=== PATIENT | female | born 1950 | race Caucasian/White ===

== ENCOUNTER 2025-04-02 21:21 | Inpatient (IN) | payer MEDICARE, SELFPAY ==
[2025-04-02 20:19] VITALS: BP 128/69; PULSE 91; RESP 16; O2SAT 92; BMI 28.3
[2025-04-02 21:21] VITALS: BMI 28.5
--- NOTE | 2025-04-02 22:06 | HP.PCM_ITS ---
HPI - General General Date of Admission: 04/02/25 Date of Service: 04/05/25 Chief Complaint: Here for rehabilitation. HPI Narrative SILVESTRE GARCIA, is a 74 Female who presents with followin03/30/2025 [facility]mit [facility]. 03/30/2025 Dr. Carl Hood performed right total knee arthroplasty. 03/30/2025 PT/OT SNF. 03/31/2025 WBAT, Geriatric consult, history of postoperative delirium, avoid Benadryl. IV antibiotics, then Duricef on discharge. PT/OT SNF. 04/01/2025 No acute events overnight, confused, history of postoperative delirium. Plan discharge to SNF. WBAT PT/OT. 04/02/2025 Eliquis/SCD for DVT prophylaxis. Doing well, pain well controlled. Delirium still. 04/02/2025 Admit to TCU with debility, here for rehabilitation, strengthening, prior to discharge home with . [facility] Medical History (Updated 04/02/25 @ 22:[address] Stef Bean MD) Irritable bowel syndrome Osteoporosis GERD (gastroesophageal reflux disease) Chronic back pain Anxiety Depression Polycythemia vera Hyperlipidemia, unspecified Essential (primary) hypertension Postoperative delirium Osteoarthritis of right knee Debility Home Medications ?Medication ?Instructions ?Recorded ?Last Taken ?Type acetaminophen 300 mg-codeine 30 mg 1 tab PO Q6H PRN se aga pain 04/02/25 Unknown History tablet (scale score 7-10) apixaban 2.5 mg tablet (Eliquis) 2.5 mg PO BID Prophal actic 04/02/25 Unknown History bupropion HCl 150 mg 24 hr tablet, 150 mg PO DAILY moo d 04/02/25 04/02/25 09:10 History extended release 150 mg carvedilol 12.5 mg tablet 12.5 mg PO BIDCM HBP 04/02/ 5 04/02/25 17:20 History 12.5 mg cefadroxil 500 mg capsule 500 mg PO BID prophylaxis Unknown History cholecalciferol (vitamin D3) 25 25 mcg PO BID health m aint 04/02/25 Unknown History mcg (1,000 unit) capsule diphenhydramine HCl 50 mg tablet 50 mg PO Q24H PRN itc davon 04/02/25 Unknown History (Benadryl Allergy) docusate sodium 100 mg capsule 100 mg PO BID constipat ion 04/02/25 Unknown History (Colace) duloxetine 60 mg capsule,delayed 60 mg PO DAILY mood 0 04/02/25 04/02/25 09:10 History release 60 mg ezetimibe 10 mg tablet 10 mg PO DAILY HDL 04/02/25 04/02/25 09:10 History 10 mg hydroxyurea 500 mg capsule 500 mg PO DAILY other 04/0204/02/25 09:10 History 500 mg lactase 3,000 unit tablet (Lactaid) 3,000 unit PO SORAYA Y dairy 04/02/25 Unknown History intolerance lansoprazole 30 mg capsule,delayed 30 mg PO DAILY GERD 04/02/25 Unknown History release lisinopril 20 mg tablet 20 mg PO DAILY HBP 04/02/25 04/02/25 09:10 History 20 mg loratadine 10 mg tablet 10 mg PO DAILY allergies Unknown History (Allerclear) methylcellulose (laxative) 500 mg 1,000 mg PO BID fibe r 04/02/25 Unknown History tablet (Citrucel) methylprednisolone 4 mg tablets in See Rx Instructions PO .COMPLEX 04/02/25 Unknown History a dose pack (Medrol (Valentino)) postop multivitamin (Daily Multi-Vitamin 1 tab PO DAILY healt h maint 04/02/25 Unknown History tablet) ondansetron 4 mg disintegrating 4 mg PO Q8H PRN nausea 04/02/25 Unknown History tablet pantoprazole 20 mg tablet,delayed 20 mg PO DAILY GERD 04/02/25 Unknown History release polyethylene glycol 3350 17 g .Route DAILY constipati on 04/02/25 Unknown History sennosides 8.6 mg tablet (senna) 17.2 mg PO BID consti pation 04/02/25 04/01/25 21:35 History 8.6 mg teriparatide 20 mcg/dose (560 20 mcg subcut DAILY oste o 04/02/25 Unknown History mcg/2.24 mL) subcutaneous pen injector trospium 20 mg tablet 20 mg PO BIDCM overactive bl adder 04/02/25 Unknown History Allergy/AdvReac Type Severity Reaction Status Date / Time acetaminophen (From Panlor Allergy Other Verified 04/02/25 19:59 (hydrocodone-acetamin)) hydrocodone (From Panlor Allergy Other Verified 04/02/25 19:59 (hydrocodone-acetamin)) lactose Allergy Diarrhea Verified 04/02/25 19:59 meperidine Allergy Rash Verified 04/02/25 19:59 Milk Containing Products Allergy Nausea/Vom/ Verified 04/02/25 19:59 (Dairy) Diarrhea propoxyphene Allergy Diarrhea Verified 04/02/25 19:59 Sulfa (Sulfonamide Allergy Rash Verified 04/02/25 19:59 Antibiotics) sulfacetamide Allergy Rash Verified 04/02/25 19:59 atorvastatin AdvReac Other Verified 04/02/25 19:59 lorazepam AdvReac Other Verified 04/02/25 19:59 Family History (Updated 04/02/25 @ 22:[address] Stef Bean MD) Mother Hypertension Anemia Alzheimer disease Father CVA (cerebral vascular accident) Myocardial infarction Sister Alzheimer disease Sister Breast cancer Daughter Leukemia Surgical History (Updated 04/02/25 @ 22:[address] Stef Bean MD) History of esophagogastroduodenoscopy (EGD) History of hysterectomy History of squamous cell carcinoma excision History of colonoscopy History of lumbar fusion Status post total right knee replacement Social History (Updated 04/02/25 @ 22:[address] Stef Bean MD) household members: spouse Smoking Status: Never smoker alcohol intake: current substance use type: does not use ROS Constitutional Constitutional: Reports weakness; Denies chills, fever(s) or weight gain ENT HEENT: Denies headache(s), nasal congestion or nasal discharge Cardiovascular Cardiovascular: Denies chest pain or palpitations Respiratory/Chest Respiratory/Chest: Denies cough, excessive phlegm production or shortness of breath with exertion Gastrointestinal Gastrointestinal: Denies abdominal pain, nausea or vomiting Genitourinary Genitourinary: Denies dysuria Musculoskeletal Musculoskeletal: Denies joint pain or joint swelling Integumentary Integumentary: Denies rash or wounds Neurologic Neurologic: Denies focal weakness, numbness or tingling Psychiatric Psychiatric: Denies anxiety, auditory hallucinations, depression, homicidal ideation or suicidal ideation Vital Signs Vital Signs Vital Signs: Weight Weight: 65.862 kg Body Mass Index (BMI) 28.5 Physical Exam Const alert General Appearance: cooperative HEENT normocephalic Eyes PERRL and EOMs intact bilaterally Neck supple, no JVD and no carotid bruits Resp normal respiratory effort, normal air movement and clear to auscultation bilaterally Cardio regular rate and regular rhythm GI normal to inspection, nondistended, normoactive bowel sounds, non-tender and non-distended Extremity normal capillary refill General Extremity: Negative for edema Skin no rashes or lesions noted General Skin Exam: no breakdown Psych affect normal Appearance: appropriate Results Lab / Micro Data 04/03/25 06:40 04/03/25 06:40 Assessment & Plan Assessment/Plan (1) Debility: (2) Osteoarthritis of right knee: (3) Status post total right knee replacement: (4) Postoperative delirium: (5) Essential (primary) hypertension: (6) Hyperlipidemia, unspecified: (7) Polycythemia vera: (8) Depression: (9) Anxiety: (10) Chronic back pain: (11) GERD (gastroesophageal reflux disease): (12) Osteoporosis: (13) Irritable bowel syndrome: PLAN: Plan 74 year old female with below past medical history hospitalized for right total knee arthroplasty 03/30/[address] Carl Hood, postoperative course complicated by delirium, admitted to TCU with debility, here for rehabilitation, strengthening, prior to discharge home with . * Debility - PT/OT. * Pain - Tramadol 50mg q6 prn pain (1-5), Oxycodone 5mg q4 prn pain (6-10). * Bowel - Miralax 17gm daily, Citrucel 1gm bid, senna/colace 2 tablets bid, Magnesium citrate 300mL daily prn. * Adult immunization - Administer pneumonia vaccine, covid vaccine, flu vaccine as appropriate. * DVT prophylaxis - Eliquis 2.5mg bid thru 04/11/2025. * Hypertension - Coreg 12.5mg bidcm, Lisinopril 20mg daily. * ID prophylaxis - Duricef 500mg bid thru 04/09/2025. * Vitamin D deficiency - D3 25mcg bid. * Hyperlipidemia - Zetia 10mg daily. * P. Vera - Hydrea 500mg daily. * Allergic rhinitis - Loratadine 10mg daily. * Inflammation - Medrol dose pack. * Nutrition - MVI 1 tablet daily. * Nausea - Zofran odt 4mg q8 prn. * GERD - Pantoprazole 20mg daily. * Osteoporosis - Forteo 20mcg sc daily. * Overactive bladder - Tolterodine 2mg daily. The following psychotropic medication was present on admission: Bupropion XL 150mg daily. Psychotropic medication therapy is indicated for a diagnosis of: Major Depression. Based on my clinical evaluation, continuation of the medication is necessary at this time. Gradual dose reduction plan (select one): ____ GDR will be attempted. Will monitor patient symptoms and behaviors in response to GDR. __x__ GRD contraindicated. Reason contraindicated: stable chronic residential use. The following psychotropic medication was present on admission: Duloxetine 60mg daily. Psychotropic medication therapy is indicated for a diagnosis of: Major Depression/Anxiety. Based on my clinical evaluation, continuation of the medication is necessary at this time. Gradual dose reduction plan (select one): ____ GDR will be attempted. Will monitor patient symptoms and behaviors in response to GDR. __x__ GRD contraindicated. 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
[2025-04-02] MEDS: Methylcellulose 2 GM Bottle 1 GM PO (23:31)
[2025-04-02] MEDS: APIXABAN 2.5 MG TABLET (WCH) PO (23:32)
[2025-04-02] MEDS: Cholecalciferol (VIT D3) 25 MCG TABLET (1,000 UNITS) PO (23:39)
[2025-04-03 07:52] LABS: Hematocrit 33.7 % (37-47); Hemoglobin 11.4 g/dL (12.0-15.0); Immature Granulocytes Count 0.020 X10^3/uL (0.0-0.0); Mean Corp Hgb Conc 33.8 g/dL (32-36); Mean Corpuscular Volume 113.5 fL (81-99); Mean Platelet Vol. 10.5 fl (6.2-12.0); NRBC Flagged by Analyzer 0 % (0-5); Platelet Count 243 K/mm3 (150-450); RBC Distribution Width CV 13.1 % (11.6-14.6); RBC Distribution Width SD 54.5 fl (35.1-43.9); Red Blood Count 2.97 M/mm3 (4.2-5.4); White Blood Count 5.8 K/mm3 (4.4-11.0)
[2025-04-03 08:45] LABS: Anion Gap 11 (5-15); BUN 31 mg/dL (4-19); BUN/Creat Ratio 44.8 RATIO (10-20); Calcium,Total 9.5 mg/dL (7.6-11.0); Carbon Dioxide 23.0 mmol/L (21.0-32.0); Chloride 103 mmol/L (98-108); Estimated Creatinine Clearance 50.66 ml/min (50-250); Glucose 106 mg/dL (70-99); Potassium 4.0 mmol/L (3.3-5.1)
[2025-04-03] MEDS: TERIPARATIDE SC (11:29)
[2025-04-03] MEDS: buPROPion (XL) 150 MG TABLET.XL PO (11:30)
[2025-04-03] MEDS: Cholecalciferol (VIT D3) 25 MCG TABLET (1,000 UNITS) PO ×2 (11:30→19:46)
[2025-04-03] MEDS: MethylPREDNISolone DosePak 4 MG BOX PO ×4 (11:31→19:45)
[2025-04-03] MEDS: APIXABAN 2.5 MG TABLET (WCH) PO ×2 (11:33→19:46)
[2025-04-03] MEDS: Tuberculin,Purif.prot.deriv. 50 TU/ML Vial 0.1 ML ID (11:35)
[2025-04-03] MEDS: Methylcellulose 2 GM Bottle 1 GM PO ×2 (11:41→19:44)
[2025-04-03] MEDS: Polyethylene Glycol 3350 17 GM PACKET PO (11:42)
[2025-04-03 16:00] VITALS: BP 103/65; PULSE 90; RESP 16; TEMP 36.7; O2SAT 99
[2025-04-03] MEDS: Ensure Plus High Protein 120 ML LIQUID PO (17:46)
[2025-04-04] MEDS: Methylcellulose 2 GM Bottle 1 GM PO ×2 (10:16→20:21)
[2025-04-04] MEDS: Polyethylene Glycol 3350 17 GM PACKET PO (10:16)
[2025-04-04] MEDS: MethylPREDNISolone DosePak 4 MG BOX PO ×4 (10:17→20:19)
[2025-04-04] MEDS: buPROPion (XL) 150 MG TABLET.XL PO (10:17)
[2025-04-04] MEDS: APIXABAN 2.5 MG TABLET (WCH) PO ×2 (10:19→20:20)
[2025-04-04] MEDS: Cholecalciferol (VIT D3) 25 MCG TABLET (1,000 UNITS) PO ×2 (10:21→20:21)
[2025-04-04] MEDS: TERIPARATIDE SC (10:29)
[2025-04-04] MEDS: Ensure Plus High Protein 120 ML LIQUID PO ×3 (10:31→16:48)
[2025-04-04 16:00] VITALS: BP 124/68; PULSE 86; RESP 16; TEMP 36.5; O2SAT 95
--- NOTE | 2025-04-04 23:47 | PCM.PN.DRR ---
Documented by User: Gary Severino 04/05/25 00:15 TCU RX Drug Regimen Review Subjective/Objective Subjective/Objective Subjective: TCU admission note. 74 year old female with below past medical history hospitalized for right total knee arthroplasty 03/30/[address] Carl Hood, postoperative course complicated by delirium, admitted to TCU with debility, here for rehabilitation, strengthening, prior to discharge home with . Objective: Allergies acetaminophen (From Panlor (hydrocodone-acetamin)) Allergy (Verified 04/02/25 19:59) Other stupor hydrocodone (From Panlor (hydrocodone-acetamin)) Allergy (Verified 04/02/25 19:59) Other stupor lactose Allergy (Verified 04/02/25 19:59) Diarrhea upset stomache meperidine Allergy (Verified 04/02/25 19:59) Rash loss of consciousness Milk Containing Products (Dairy) Allergy (Verified 04/02/25 19:59) Nausea/Vom/Diarrhea propoxyphene Allergy (Verified 04/02/25 19:59) Diarrhea also, rash Sulfa (Sulfonamide Antibiotics) Allergy (Verified 04/02/25 19:59) Rash sulfacetamide Allergy (Verified 04/02/25 19:59) Rash atorvastatin Adverse Reaction (Verified 04/02/25 19:59) Other weakness lorazepam Adverse Reaction (Verified 04/02/25 19:59) Other instability and multiple falls Current Medications Generic Name Dose Route Start Last Admin Trade Name Freq PRN Reason Stop Dose Admin Apixaban 2.5 mg 04/02/25 22:00 04/04/25 20:20 Apixaban 2.5 Mg Tablet ([facility]) PO 04/11/25 23:59 2.5 mg BID LUZMA Administration Bupropion HCl 150 mg 04/03/25 10:00 04/04/25 10:17 Bupropion (Xl) 150 Mg Tablet.Xl PO 150 mg DAILY LUZMA Administration Carvedilol 12.5 mg 04/03/25 08:00 04/04/25 16:48 Carvedilol 12.5 Mg Tablet PO 12.5 mg BIDCM LUZMA Administration Cefadroxil 500 mg 04/02/25 22:00 04/04/25 20:20 Cefadroxil 500 Mg Capsule PO 04/09/25 22:01 500 mg BID LUZMA Administration Cholecalciferol 25 mcg 04/02/25 22:00 04/04/25 20:21 Cholecalciferol (Vit D3) 25 Mcg Tablet (1,000 Units) PO 25 mcg BID LUZMA Administration Duloxetine HCl 60 mg 04/03/25 10:00 04/04/25 10:20 Duloxetine Hcl 60 Mg Capsule PO 60 mg DAILY LUZMA Administration Ezetimibe 10 mg 04/03/25 10:00 04/04/25 10:21 Ezetimibe 10 Mg Tablet PO 10 mg DAILY LUZMA Administration Hydroxyurea 500 mg 04/03/25 10:00 04/04/25 10:18 Hydroxyurea 500 Mg Capsule PO 500 mg DAILY LUZMA Administration Lisinopril 20 mg 04/03/25 10:00 04/04/25 10:22 Lisinopril 20 Mg Tablet PO 20 mg DAILY LUZMA Administration Protocol Loratadine 10 mg 04/03/25 10:00 04/04/25 10:23 Loratadine 10 Mg Tablet PO 10 mg DAILY LUZMA Administration Magnesium Citrate 300 ml 04/02/25 22:19 Magnesium Citrate 300 Ml PO DAILY PRN Constipation Methylcellulose 1 gm 04/02/25 22:00 04/04/25 20:21 Methylcellulose 2 Gm Bottle PO 1 gm BID LUZMA Administration Methylprednisolone 8 mg 04/03/25 08:00 04/04/25 20:19 Methylprednisolone Dosepak 4 Mg Box PO 04/08/25 08:59 8 mg 2200 LUZMA Administration Taper Multivitamins 1 tablet 04/03/25 08:00 04/04/25 10:21 Multivitamins,Therapeutic Tablet PO 1 tablet DAILYCM LUZMA Administration Nutritional Formula (Lactose Free) 120 ml 04/03/25 17:45 04/04/25 16:48 Ensure Plus High Protein 120 Ml Liquid PO 120 ml TIDCM LUZMA Administration Ondansetron HCl 4 mg 04/02/25 21:02 Ondansetron Odt 4 Mg Tablet PO Q8H PRN nausea Oxycodone HCl 5 mg 04/02/25 22:26 Oxycodone 5 Mg Tablet PO Q4H PRN PRN Pain Score 6-10 or Pre PT/OT Pantoprazole Sodium 20 mg 04/03/25 10:00 04/04/25 10:22 Pantoprazole Sodium 20 Mg Tablet PO 20 mg DAILY LUZMA Administration Polyethylene Glycol 17 gm 04/03/25 10:00 04/04/25 10:16 Polyethylene Glycol 3350 17 Gm Packet PO 17 gm DAILY LUZMA Administration Teriparatide Acetate 20 mcg 04/03/25 10:00 04/04/25 10:29 Teriparatide 20 Mcg/Dose Pen.Injctr SC 20 mcg DAILY LUZMA Administration Tolterodine Tartrate 2 mg 04/03/25 10:00 04/04/25 10:17 Tolterodine Tartrate 2 Mg Cap.Sa PO 2 mg DAILY LUZMA Administration Tramadol HCl 50 mg 04/02/25 22:26 Tramadol 50 Mg Tablet PO Q6H PRN PRN Pain Score 1-5 or Pre PT/OT Tuberculin PPD 0.1 ml 04/10/25 10:00 Tuberculin,Purif.Prot.Deriv. 50 Tu/Ml Vial ID 04/10/25 10:01 X1 ONE Problem List Irritable bowel syndrome (Acute) Osteoporosis (Acute) GERD (gastroesophageal reflux disease) (Acute) Chronic back pain (Chronic) Anxiety (Acute) Depression (Acute) Polycythemia vera (Acute) Hyperlipidemia, unspecified (Acute) Essential (primary) hypertension (Acute) Postoperative delirium (Acute) Status post total right knee replacement (Acute) Osteoarthritis of right knee (Acute) Debility (Acute) Vital Signs Temp Pulse Resp BP Pulse Ox O2 Del Method 97.7 F L 86 16 124/68 H 95 Room Air 04/04/25 16:00 04/04/25 16:00 04/04/25 16:00 04/04/25 16:00 04/04/25 16:00 04/04/25 16:00 Oxygen Delivery Method Room Air Weight: 65.862 kg Body Mass Index (BMI) 28.5 Sodium 137 mmol/L (133-145) 04/03/25 06:40 Potassium 4.0 mmol/L (3.3-5.1) 04/03/25 06:40 Chloride 103 mmol/L (98-108) 04/03/25 06:40 Carbon Dioxide 23.0 mmol/L (21.0-32.0) 04/03/25 06:40 Anion Gap 11 (5-15) 04/03/25 06:40 BUN 31 mg/dL (4-19) H 04/03/25 06:40 Creatinine 0.70 mg/dL (0.70-1.20) 04/03/25 06:40 Est GFR (MDRD) Non-Af 89 (>60) 04/03/25 06:40 BUN/Creatinine Ratio 44.8 RATIO (10-20) H 04/03/25 06:40 Glucose 106 mg/dL (70-99) H 04/03/25 06:40 Assessment/Plan: 1. Pain: tramadol 50 mg PO Q6H PRIN pain (1-5), oxycodone 5 mg PO Q4H PRN pain (6-10). The patient has not required any doses of tramadol or oxycodone so far this admission. Please continue to monitor pain levels, PRN medication usage, for constipation, respiratory depression, seizures, renal function (serum creatinine = 0.70 mg/dL with creatinine clearance ~ 51 mL/min on 04/03/25), for dizziness/drowsiness, and for syncope/ataxia/falls. 2. Bowel: polyethylene glycol 17 grams PO daily, methylcellulose 1 gram PO BID, magnesium citrate 300 mL PO daily PRN constipation. The patient has not required any doses of magnesium citrate so far this admission, and the patient's last bowel movement was documented as 04/02/25. Please continue to monitor for bowel movements, PRN medication usage, diarrhea and constipation. 3. DVT prophylaxis: apixaban 2.5 mg PO BID through 04/11/25. Please continue to monitor for s/s of a DVT such as pain/erythema/or swelling in an extremity, for s/s fo bleeding/excessive bruising, hemoglobin levels (Hgb = 11.4 g/dL on 04/03/25), and platelet counts (Plt = 243 K/mm3 on 04/03/25). 4. Hypertension: carvedilol 12.5 mg PO BID with meals, lisinopril 20 mg PO daily. Please continue to monitor blood pressures (recent range = 103-128/65-69 mmHg), heart rates (recent range = 86-91 beats/min), fatigue, renal function (serum creatinine = 0.70 mg/dL with creatinine clearance ~ 51 mL/min on 04/03/25), potassium levels (K = 4.0 mmol/L on 04/03/25), sodium levels (Na = 137 mmol/L on 04/03/25), for angioedema, and for cough. 5. ID prophylaxis: cefadroxil 500 mg PO BID. Please continue to monitor for s/s of infection, WBC counts (WBC = 5.8 K/mm3 on 04/03/25), renal function (serum creatinine = 0.70 mg/dL with creatinine clearance ~ 51 mL/min on 04/03/25), and for fevers (Temp = 97.7F on 04/04/25). 6. Hyperlipidemia: ezetimibe 10 mg PO daily. Please continue to monitor lipid levels (no recent lipid levels documented), and for myalgias. 7. P. Vera: hydroxyurea 500 mg PO daily. Please continue to monitor for leukopenia (WBC = 5.8 K/mm3 on 04/03/25), hemoglobin levels (Hgb = 11.4 g/dL on 04/03/25), and for s/s of bleeding. 8. Inflammation: methylprednisolone dose pack. Please continue to monitor for s/s of inflammation, blood pressures (recent range = 103-128/65-69 mmHg), for agitation and insomnia. 9. Osteoporosis: teriparatide 20 mcg SC daily. Please continue to monitor calcium levels (Ca = 9.5 mg/dL on 04/03/25), injection site reaction, dizziness, and syncope. 10. GERD: pantoprazole 40 mg PO daily. Please continue to monitor for s/s of GERD, for diarrhea that could indicate s/s of clostridium difficile, and for s/s of bone resorption such as fractures. 11. Allergic rhinitis: loratadine 10 mg PO daily. Please continue to monitor for allergies, and for dizziness/drowsiness. 12. Nausea: ondansetron 4 mg PO Q8H PRN nausea. The patient has not used any doses of ondansetron so far this admission. Please continue to monitor for s/s of nausea, and for PRN medication usage. 13. Overactive bladder: tolterodine 2 mg PO daily. Please continue to monitor for bladder spasms, dry mouth, dyspepsia, headache, and constipation. 14. Vitamin D deficiency: cholecalciferol 25 mcg PO daily. Please continue to monitor for s/s of vitamin D deficiency. 15. Nutrition: ensure plus high protein 120 mL PO TID with meals, multivitamin 1 tablet PO daily. Please continue to monitor for overall nutritional status. Assessment/Plan for indications treated with psychotropic medications: 1. Major depression/anxiety: bupropion XL 150 mg PO daily, duloxetine 60 mg PO daily. Please see provider note regarding stable chronic long-term therapy GDR not recommended. Monitor for anxiety, agitation and insomnia, seizure activity, nausea, appetite and body weight, headache, suicidal thoughts or behaviors (Boxed Warning). Monitor blood pressure and HR. BP range since admission = 103-128/65-69 mmHg; HR range since admission = 86-91 beats/min Medication is renally eliminated, monitor renal function periodically. Scr = 0.70 mg/dL Monitor for diarrhea, nausea, appetite/weight loss, anxiety or drowsiness, suicidal thoughts or behaviors (Boxed Warning), symptoms of bleeding, symptoms of serotonin syndrome (including agitation, confusion, hyperreflexia, rigidity/myoclonus, tremor, tachycardia, tachypnea), sodium levels (last Na = 137 mmol/L). Monitor for orthostatic hypotension, including postural dizziness, syncope or falls. Check orthostatic vital signs if suspicion of orthostasis. Montor for hepatotoxicity (abdominal pain, nausea, jaundice, dark urine, AST/ALT as clinically indicated). AST/ALT = no recent LFTs documented Monitor for efficacy including resident symptoms, behaviors and indications of distress. Monitor for s/s of depression/anxiety and for SI. Monitor for tolerability including mental status, cognition, excessive sleepiness, withdrawal or decreased participation in activities and decline in physical functioning. Maximize use of nonpharmacologic/behavioral interventions to facilitate dose reduction or discontinuation as appropriate. Please evaluate the appropriateness of GDR unless contraindicated. If appropriate, GDR should be attempted in 2 separate quarters within the first year of use or admission to TCU. If GDR attempted, monitor resident symptoms/behaviors. Medical chart and medication regimen reviewed. The following medication irregularities or issues were identified: NA Date Date of Note: 04/05/25 Documented by User: Dr. Stef Bean MD 04/05/25 07:17 TCU RX Drug Regimen Review Provider Comments Provider responsibility Provider Comments to Recommendations by Pharmacy Agree
[2025-04-05] MEDS: Polyethylene Glycol 3350 17 GM PACKET PO (09:12)
[2025-04-05] MEDS: MethylPREDNISolone DosePak 4 MG BOX PO ×4 (09:13→21:05)
[2025-04-05] MEDS: Methylcellulose 2 GM Bottle 1 GM PO ×2 (09:15→21:05)
[2025-04-05] MEDS: APIXABAN 2.5 MG TABLET (WCH) PO ×2 (09:19→21:06)
[2025-04-05] MEDS: buPROPion (XL) 150 MG TABLET.XL PO (09:20)
[2025-04-05] MEDS: Cholecalciferol (VIT D3) 25 MCG TABLET (1,000 UNITS) PO ×2 (09:20→21:07)
[2025-04-05] MEDS: Ensure Plus High Protein 120 ML LIQUID PO ×3 (09:27→17:11)
[2025-04-05] MEDS: TERIPARATIDE SC (09:38)
[2025-04-05 09:45] VITALS: BP 139/87; PULSE 80; RESP 18; TEMP 36.7; O2SAT 94
--- NOTE | 2025-04-05 12:26 | NURSING ---
Case Operator Note; Activity Asset: Kristin Dolan is independent in her choice of daily activities w/reminders. He will be here daily and bring her items she may need. They play board games together, reading, watching tv, and she welcomes visits from the beet end supervisor and therapy dog when available. Staff will encourage social activities, remind her of weekly activities and respect her right to say no.
[2025-04-05 16:45] VITALS: PULSE 72; RESP 16; O2SAT 93
[2025-04-06 04:26] VITALS: RESP 16
[2025-04-06] MEDS: Ensure Plus High Protein 120 ML LIQUID PO ×3 (07:42→17:52)
[2025-04-06] MEDS: Methylcellulose 2 GM Bottle 1 GM PO ×2 (07:46→21:15)
[2025-04-06] MEDS: MethylPREDNISolone DosePak 4 MG BOX PO ×3 (07:46→21:16)
[2025-04-06] MEDS: Cholecalciferol (VIT D3) 25 MCG TABLET (1,000 UNITS) PO ×2 (07:49→21:16)
[2025-04-06] MEDS: Polyethylene Glycol 3350 17 GM PACKET PO (07:49)
[2025-04-06] MEDS: APIXABAN 2.5 MG TABLET (WCH) PO ×2 (07:50→21:16)
[2025-04-06] MEDS: buPROPion (XL) 150 MG TABLET.XL PO (07:50)
[2025-04-06] MEDS: TERIPARATIDE SC (07:55)
[2025-04-06 08:05] VITALS: BP 152/90; PULSE 87; RESP 18; TEMP 36.7; O2SAT 95
--- NOTE | 2025-04-06 10:24 | NURSING ---
REMOVED SURGICAL DRESSING TO RT KNEE PER ORDER. CLEANED AREA. STERI STRIPS INTACT, NON PITTING EDEMA TO KNEE AND LOWER LEG, BRUISING. NO S/S OF INFECTION. APPLIED ABD AND ICE. PT TOLERATED WELL.
--- NOTE | 2025-04-06 13:54 | CASEMGMT ---
Social Work SW met with patient to complete initial assessment. present in room to assist with answering questions. pt is confused. Introduced self and role. Obtained/updated contacts. Patient confirmed code status as full code. Educated to [facility] and Home insurance and review process. Pt's goal is to return home with . SW will continue to follow for DC planning. Shayy Tavares BUSINESS SERVICES COORDINATOR SKIAGRAPHER
[2025-04-06 15:06] VITALS: BMI 28.8
[2025-04-06 17:57] VITALS: BP 126/88; PULSE 87
--- NOTE | 2025-04-06 18:55 | NURSING ---
PT EATING SUPPER WITH , AND PT STARTED COUGHING A LOT. ASKED WHAT PT ATE OR DRANK. STATED A PIECE OF VASQUEZ PIE. LUNGS CLEAR. RN AWARE,WILL CONTINUE TO MONITOR.
[2025-04-06] MEDS: MELATONIN 3 MG TABLET PO (21:16)
[2025-04-07] MEDS: MethylPREDNISolone DosePak 4 MG BOX PO ×2 (08:35→20:37)
--- NOTE | 2025-04-07 09:19 | CASEMGMT ---
Social Work IDT met with patient and for care plan meeting. Discussed patient's progress in PT/OT/ST/SN/RDN. Educated to [facility] insurance with NRD 04/08 and continued stay is not guaranteed with each review. Provided pt/family with written communication of insurance process and copay coverage during stay. attentive and has no concerns with pt returning home under his care. The goal is for pt to return to PLOF physically and cognitively. SW will continue to follow for DC planning. Shayy Tavares WRINGER AND SETTER PHYSICIST NUCLEAR
[2025-04-07] MEDS: Cholecalciferol (VIT D3) 25 MCG TABLET (1,000 UNITS) PO ×2 (09:35→20:37)
[2025-04-07] MEDS: APIXABAN 2.5 MG TABLET (WCH) PO ×2 (09:37→20:37)
[2025-04-07] MEDS: buPROPion (XL) 150 MG TABLET.XL PO (09:38)
[2025-04-07] MEDS: Polyethylene Glycol 3350 17 GM PACKET PO (09:41)
[2025-04-07] MEDS: Methylcellulose 2 GM Bottle 1 GM PO ×2 (09:41→20:34)
[2025-04-07] MEDS: TERIPARATIDE SC (09:57)
[2025-04-07 14:18] VITALS: BP 118/67; PULSE 78; RESP 16; TEMP 36.6; O2SAT 100
[2025-04-07 20:26] VITALS: PULSE 80; RESP 18; O2SAT 97
[2025-04-07] MEDS: MELATONIN 3 MG TABLET PO (20:37)
[2025-04-08] MEDS: MethylPREDNISolone DosePak 4 MG BOX PO (07:55)
[2025-04-08] MEDS: Methylcellulose 2 GM Bottle 1 GM PO ×2 (07:57→21:28)
[2025-04-08] MEDS: APIXABAN 2.5 MG TABLET (WCH) PO ×2 (07:59→21:29)
[2025-04-08] MEDS: Polyethylene Glycol 3350 17 GM PACKET PO (07:59)
[2025-04-08] MEDS: buPROPion (XL) 150 MG TABLET.XL PO (08:00)
[2025-04-08] MEDS: Cholecalciferol (VIT D3) 25 MCG TABLET (1,000 UNITS) PO ×2 (08:00→21:29)
[2025-04-08] MEDS: TERIPARATIDE SC (08:05)
[2025-04-08 08:16] VITALS: BP 123/77; PULSE 85; RESP 18; TEMP 36.8; O2SAT 92
--- NOTE | 2025-04-08 15:32 | CASEMGMT ---
Social Work SW completed BIMS () and PHQ-2 () for MDS assessment. Shayy Tavares PANEL ASSEMBLER CUSTOMER EXPERIENCE STRATEGIST
[2025-04-08 17:48] VITALS: BP 121/76; PULSE 78
[2025-04-08] MEDS: MELATONIN 3 MG TABLET PO (21:29)
[2025-04-09 05:47] LABS: Hematocrit 35.0 % (37-47); Hemoglobin 11.4 g/dL (12.0-15.0); Immature Granulocytes Count 0.140 X10^3/uL (0.0-0.0); Mean Corp Hgb Conc 32.6 g/dL (32-36); Mean Corpuscular Volume 117.8 fL (81-99); Mean Platelet Vol. 9.5 fl (6.2-12.0); NRBC Flagged by Analyzer 0 % (0-5); Platelet Count 393 K/mm3 (150-450); RBC Distribution Width CV 13.0 % (11.6-14.6); RBC Distribution Width SD 55.9 fl (35.1-43.9); Red Blood Count 2.97 M/mm3 (4.2-5.4); White Blood Count 7.9 K/mm3 (4.4-11.0)
[2025-04-09 06:37] LABS: Anion Gap 9 (5-15); BUN 17 mg/dL (4-19); BUN/Creat Ratio 19.1 RATIO (10-20); Calcium,Total 9.2 mg/dL (7.6-11.0); Carbon Dioxide 25.6 mmol/L (21.0-32.0); Chloride 108 mmol/L (98-108); Estimated Creatinine Clearance 47.01 ml/min (50-250); Glucose 101 mg/dL (70-99); Potassium 4.6 mmol/L (3.3-5.1)
[2025-04-09 08:22] VITALS: BP 136/78; PULSE 79; RESP 17; TEMP 36.3; O2SAT 96
[2025-04-09] MEDS: Methylcellulose 2 GM Bottle 1 GM PO ×2 (08:41→20:23)
[2025-04-09] MEDS: APIXABAN 2.5 MG TABLET (WCH) PO ×2 (08:42→20:25)
[2025-04-09] MEDS: TERIPARATIDE SC (08:42)
[2025-04-09] MEDS: Cholecalciferol (VIT D3) 25 MCG TABLET (1,000 UNITS) PO ×2 (08:44→20:24)
[2025-04-09] MEDS: Polyethylene Glycol 3350 17 GM PACKET PO (08:44)
[2025-04-09] MEDS: buPROPion (XL) 150 MG TABLET.XL PO (08:44)
--- NOTE | 2025-04-09 17:26 | CASEMGMT ---
Social Work Insurance issued LCD 04/11, DC 04/12 SW spoke with pt and at bedside. Informed of LCD, provided NOMNC and explained appeal rights. Pt/ verbalized understanding and denied to appeal. Since pt will not receive therapy on 04/11 or 04/12, pt/ electing to DC home 04/11. SW educated to skilled HHC or OP therapy. Pt prefers skilled HHC first. SW offered list of skilled HHC agencies within geographical area, INN with insurance, that include quality and resource data via [employer] guide. inquired about [facility]. SW informed there is a [facility] but unsure if they service pt's location in [place]. However, offered to place referral. agreed. SW educated that since the referral cannot be processed until Saturday, either [facility] will contact for acceptance/SOC, or this worker will contact with additional options for HHC agencies if [facility] cannot accept. agreed and expressed understanding. is aware of pt's cognitive deficits and IDT is recommending 24/7 care, as pt cannot be left alone. Pt/ denied DME needs. will transport. - SW phoned referral to [facility]. IDT updated. Plan: DC home with 04/11, HHC PT/OT/ST Shayy HUERTA
--- NOTE | 2025-04-09 18:13 | DS.PCM_ITS ---
Providers Date of Admission: 04/02/25 Primary Care Physician: CHELSI THOMPSON Reason For Visit: S/P TOTAL R KNEE Diagnosis Discharge Diagnosis (1) Debility: Status: Acute Code(s): R53.81 - Other malaise (2) Osteoarthritis of right knee: Status: Acute Code(s): M17.11 - Unilateral primary osteoarthritis, right knee (3) Status post total right knee replacement: Status: Acute Code(s): Z96.651 - Presence of right artificial knee joint (4) Postoperative delirium: Status: Acute Code(s): F05 - Delirium due to known physiological condition (5) Essential (primary) hypertension: Status: Acute Code(s): I10 - Essential (primary) hypertension (6) Hyperlipidemia, unspecified: Status: Acute Code(s): E78.5 - Hyperlipidemia, unspecified (7) Polycythemia vera: Status: Acute Code(s): D45 - Polycythemia vera (8) Depression: Status: Acute Code(s): F32.A - Depression, unspecified (9) Anxiety: Status: Acute Code(s): F41.9 - Anxiety disorder, unspecified (10) Chronic back pain: Status: Chronic Code(s): M54.9 - Dorsalgia, unspecified; G89.29 - Other chronic pain (11) GERD (gastroesophageal reflux disease): Status: Acute Code(s): K21.9 - Gastro-esophageal reflux disease without esophagitis (12) Osteoporosis: Status: Acute Code(s): M81.0 - Age-related osteoporosis without current pathological fracture (13) Irritable bowel syndrome: Status: Acute Code(s): K58.9 - Irritable bowel syndrome, unspecified Plan 74 year old female with below past medical history hospitalized for right total knee arthroplasty 03/30/[address] Carl Hood, postoperative course complicated by delirium, admitted to TCU with debility, here for rehabilitation, strengthening, prior to discharge home with . * Debility - PT/OT. * Pain - Tramadol 50mg q6 prn pain (1-5), Oxycodone 5mg q4 prn pain (6-10). * Bowel - Miralax 17gm daily, Citrucel 1gm bid, senna/colace 2 tablets bid, Magnesium citrate 300mL daily prn. * Adult immunization - Administer pneumonia vaccine, covid vaccine, flu vaccine as appropriate. * DVT prophylaxis - Eliquis 2.5mg bid thru 04/11/2025. * Hypertension - Coreg 12.5mg bidcm, Lisinopril 20mg daily. * ID prophylaxis - Duricef 500mg bid thru 04/09/2025. * Vitamin D deficiency - D3 25mcg bid. * Hyperlipidemia - Zetia 10mg daily. * P. Vera - Hydrea 500mg daily. * Allergic rhinitis - Loratadine 10mg daily. * Inflammation - Medrol dose pack. * Nutrition - MVI 1 tablet daily. * Nausea - Zofran odt 4mg q8 prn. * GERD - Pantoprazole 20mg daily. * Osteoporosis - Forteo 20mcg sc daily. * Overactive bladder - Tolterodine 2mg daily. The following psychotropic medication was present on admission: Bupropion XL 150mg daily. Psychotropic medication therapy is indicated for a diagnosis of: Major Depression. Based on my clinical evaluation, continuation of the medication is necessary at this time. Gradual dose reduction plan (select one): ____ GDR will be attempted. Will monitor patient symptoms and behaviors in response to GDR. __x__ GRD contraindicated. 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 The following psychotropic medication was present on admission: Duloxetine 60mg daily. Psychotropic medication therapy is indicated for a diagnosis of: Major Depression/Anxiety. Based on my clinical evaluation, continuation of the medication is necessary at this time. Gradual dose reduction plan (select one): ____ GDR will be attempted. Will monitor patient symptoms and behaviors in response to GDR. __x__ GRD contraindicated. 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 Medications at Discharge Home Medications bupropion HCl 150 mg 24 hr tablet, extended release 150 mg PO DAILY mood 04/02/25 carvedilol 12.5 mg tablet 12.5 mg PO BIDCM HBP 04/02/25 cholecalciferol (vitamin D3) 25 mcg (1,000 unit) capsule 25 mcg PO BID health maint 04/02/25 duloxetine 60 mg capsule,delayed release 60 mg PO DAILY mood 04/02/25 ezetimibe 10 mg tablet 10 mg PO DAILY HDL 04/02/25 hydroxyurea 500 mg capsule 500 mg PO DAILY other 04/02/25 lansoprazole 30 mg capsule,delayed release 30 mg PO DAILY GERD 04/02/25 lisinopril 20 mg tablet 20 mg PO DAILY HBP 04/02/25 loratadine 10 mg tablet (Allerclear) 10 mg PO DAILY allergies 04/02/25 methylcellulose (laxative) 500 mg tablet (Citrucel) 1,000 mg PO BID fiber 04/02/25 pantoprazole 20 mg tablet,delayed release 20 mg PO DAILY GERD 04/02/25 teriparatide 20 mcg/dose (560 mcg/2.24 mL) subcutaneous pen injector 20 mcg subcut DAILY osteo 04/02/25 trospium 20 mg tablet 20 mg PO BIDCM overactive bladder 04/02/25 acetaminophen 500 mg tablet 1,000 mg (2 x 500 mg) PO Q8 #0 tabs 04/09/25 Hospital Course Operations total knee replacement Procedures None Summary of Care Provided Minutes Spent on Discharge: 35 Hospital Course: 74 year old female with below past medical history hospitalized for right total knee arthroplasty 03/30/[address] Carl Hood, postoperative course complicated by delirium, admitted to TCU with debility, here for rehabilitation, strengthening, prior to discharge home with . Discharge home with 04/11/2025, [facility] PT/OT/ST. Physical Exam Const alert General Appearance: cooperative HEENT normocephalic Eyes PERRL and EOMs intact bilaterally Neck supple, no JVD and no carotid bruits Resp normal respiratory effort, normal air movement and clear to auscultation bilaterally Cardio regular rate and regular rhythm GI normal to inspection, nondistended, normoactive bowel sounds, non-tender and non-distended Extremity normal capillary refill General Extremity: Negative for edema Skin no rashes or lesions noted General Skin Exam: no breakdown Psych affect normal Appearance: appropriate Weight / BMI Weight Weight: 67.086 kg Body Mass Index (BMI) 28.8 ABG / Lab / Microbiology Data 04/09/25 05:05 04/09/25 05:05 Laboratory: Laboratory Results - last 24 hr 04/09/25 05:05: WBC 7.9, RBC 2.97 L, Hgb 11.4 L, Hct 35.0 L, MCV 117.8 H, MCH 38.4 H, MCHC 32.6, RDW Std Deviation 55.9 H, RDW Coeff of Stephanie 13.0, Plt Count 393, MPV 9.5, Immature Gran % (Auto) 1.800 H, Neut % (Auto) 48.3, Lymph % (Auto) 36.0, Posey % (Auto) 10.5 H, Eos % (Auto) 2.4, Baso % (Auto) 1.0, Absolute Neuts (auto) 3.8, Absolute Lymphs (auto) 2.85, Nucleated RBC % 0, Sodium 143, Potassium 4.6, Chloride 108, Carbon Dioxide 25.6, Anion Gap 9, BUN 17, Creatinine 0.87, Estim Creat Clear Calc 47.01 L, Est GFR (MDRD) Non-Af 69, BUN/Creatinine Ratio 19.1, Glucose 101 H, Calcium 9.2 D/C Instructions Discharge Activity: Return to Normal Activity and May Shower Weight Bearing Status: Weight bearing as tolerated Call your doctor if you observe: Fever of 101 or Higher, Inability to urinate, Inability to have a bowel movement, Shortness of breath, Dizziness, Fainting spells, Swelling in the ankles, Chest pain and Uncontrolled pain DC O2, CPAP, BIPAP Needs Home O2 Discharge instructions: No Additional Instructions: Discharge home with 04/11/2025, [facility] PT/OT/ST. Please Follow Up With: Nazario Woods PA-C When: As scheduled. Meaningful Use Info Meaningful Use Meaningful Use Diagnoses (Choose all that apply): None applicable Discharge Plan Admission Admit Date/Time: 04/02/25 21:21 Primary Reason for Your Visit: Debility. Attending Provider: Stef Bean Chi Primary Care Provider: CHELSI THOMPSON Instructions Additional Instructions / Restrictions: Discharge home with 04/11/2025, [facility] PT/OT/ST. Discharge Orders/Prescriptions Prescriptions: New acetaminophen 500 mg Tablet 1,000 mg PO Q8 Qty: 0 0RF Continued bupropion HCl 150 mg tablet extended release 24 hr 150 mg PO DAILY carvedilol 12.5 mg tablet 12.5 mg PO BIDCM duloxetine 60 mg capsule,delayed release(DR/EC) 60 mg PO DAILY ezetimibe 10 mg tablet 10 mg PO DAILY hydroxyurea 500 mg capsule 500 mg PO DAILY lansoprazole 30 mg capsule,delayed release(DR/EC) 30 mg PO DAILY lisinopril 20 mg tablet 20 mg PO DAILY loratadine [Allerclear] 10 mg tablet 10 mg PO DAILY pantoprazole 20 mg tablet,delayed release (DR/EC) 20 mg PO DAILY cholecalciferol (vitamin D3) 25 mcg (1,000 unit) capsule 25 mcg PO BID Citrucel 500 mg tablet 1,000 mg PO BID teriparatide 20 mcg/dose (560mcg/2.24mL) pen injector 20 mcg SUBCUT DAILY Patient Comments: [NO ORIGINAL SIG] trospium 20 mg tablet 20 mg PO BIDCM Discontinued acetaminophen-codeine 300-30 mg tablet 1 tab PO Q6H PRN (Reason: severe pain (scale score 7-10)) Eliquis 2.5 mg tablet 2.5 mg PO BID cefadroxil 500 mg capsule 500 mg PO BID Benadryl Allergy 50 mg tablet 50 mg PO Q24H PRN (Reason: itching) docusate sodium [Colace] 100 mg capsule 100 mg PO BID lactase [Lactaid] 3,000 unit tablet 3,000 unit PO DAILY methylprednisolone [Medrol (Valentino)] 4 mg tablets,dose pack See Rx Instructions .ROUTE .COMPLEX Rx Instructions: orally per package directions multivitamin [Daily Multi-Vitamin] Tablet 1 tab PO DAILY ondansetron 4 mg tablet,disintegrating 4 mg PO Q8H PRN (Reason: nausea) sennosides [senna] 8.6 mg tablet 17.2 mg PO BID polyethylene glycol 3350 [Miralax] 17 g .Route DAILY Referrals / Follow Up: CHELSI THOMPSON [Other] Disposition Disposition (needs filled in before D/C Order can be placed): Home Health Service
[2025-04-09] MEDS: MELATONIN 3 MG TABLET PO (20:25)
[2025-04-10] MEDS: buPROPion (XL) 150 MG TABLET.XL PO (09:23)
[2025-04-10] MEDS: Methylcellulose 2 GM Bottle 1 GM PO ×2 (09:23→22:58)
[2025-04-10] MEDS: Cholecalciferol (VIT D3) 25 MCG TABLET (1,000 UNITS) PO ×2 (09:23→23:00)
[2025-04-10] MEDS: APIXABAN 2.5 MG TABLET (WCH) PO ×2 (09:26→22:59)
[2025-04-10 10:00] VITALS: PULSE 73; RESP 16; O2SAT 95
[2025-04-10 16:00] VITALS: BP 119/73; PULSE 98; RESP 16; TEMP 36.4; O2SAT 98
[2025-04-10] MEDS: MELATONIN 3 MG TABLET PO (23:00)
[2025-04-11 07:35] VITALS: PULSE 79; RESP 16; O2SAT 95
[2025-04-11] MEDS: Methylcellulose 2 GM Bottle 1 GM PO (07:58)
[2025-04-11] MEDS: APIXABAN 2.5 MG TABLET (WCH) PO (07:59)
[2025-04-11] MEDS: Cholecalciferol (VIT D3) 25 MCG TABLET (1,000 UNITS) PO (08:00)
[2025-04-11] MEDS: buPROPion (XL) 150 MG TABLET.XL PO (08:00)
[2025-04-11 08:45] VITALS: BP 108/74; PULSE 83; RESP 16; TEMP 36.5; O2SAT 96
[2025-04-11 11:37] VITALS: BP 107/75; PULSE 75; RESP 18; TEMP 36.4; O2SAT 93
--- NOTE | 2025-04-12 09:45 | CASEMGMT ---
Addendum entered by Shayy Tavares 04/12/25 13:35: [facility] and will call for SOC. SW phoned to update. appreciative. Original Note: Social Work [facility] cannot accept pt d/t location. SW phoned to notify and inquire about additional HHC agency. stated pt used [facility] prior. SW offered to place referral. agreed. SW to update with outcome. SW faxed referral to [facility]. Shayy Tavares [employer]
--- NOTE | 2025-04-15 12:55 | MDS.RN ---
Information for the MDS was obtained from review of the clinical record, interview of resident, staff, and direct observation of resident?s care.
== END 2025-04-11 11:40 | disposition home health service (06) | DRG 560 ==
PROVIDERS: Admitting Provider Family Medicine Geriatric Medicine; Referring Provider Family Medicine Geriatric Medicine; Visit Provider Family Medicine Geriatric Medicine
DX: Z47.1 Aftercare following joint replacement surgery (principal); F05 Delirium due to known physiological condition; F32.9 Major depressive disorder, single episode, unspecified; I10 Essential (primary) hypertension; D45 Polycythemia vera; K58.9 Irritable bowel syndrome, unspecified; K21.9 Gastro-esophageal reflux disease without esophagitis; M17.11 Unilateral primary osteoarthritis, right knee; E55.9 Vitamin D deficiency, unspecified; E78.5 Hyperlipidemia, unspecified; F41.9 Anxiety disorder, unspecified; J30.9 Allergic rhinitis, unspecified; Z79.01 Long term (current) use of anticoagulants; Z79.899 Other long term (current) drug therapy; M81.0 Age-related osteoporosis without current pathological fracture; N32.81 Overactive bladder; Z96.651 Presence of right artificial knee joint; G89.29 Other chronic pain; G47.00 Insomnia, unspecified
CPT/HCPCS: 36415; 80048; 85025; 92507; 92523; 97110; 97116; 97162; 97166; 97530; 97535; 97802